=== PATIENT | male | born 1940 | race Two or more races ===

== ENCOUNTER 2018-01-22 14:19 | Inpatient (IN) | payer MEDICARE, OTHER ==
[~2018-01-22] VITALS: Ht 175.3 cm; Wt 68.1 kg
[2018-01-22] MEDS ORDERED: ACETAMINOPHEN 325 MG TABLET PO PRN (15:00)
[2018-01-22] MEDS ORDERED: POLYETHYLENE GLYCOL 17 GM PACKET PO PRN (15:00)
[2018-01-22] MEDS ORDERED: BISACODYL 10 MG SUPP PR PRN (15:00)
[2018-01-22] MEDS ORDERED: DOCUSATE 100 MG CAPSULE PO PRN (15:00)
[2018-01-22 16:51] LABS: MICROSCOPIC AUTO
[2018-01-22 17:00] VITALS: BP 131/84
[2018-01-22 17:05] LABS: CHOLESTEROL, TOTAL 148 mg/dL (140-239); TRIGLYCERIDES 344 mg/dL (50-200); VLDL CHOLESTEROL 69 mg/dL (0-25)
[2018-01-22] MEDS ORDERED: SPIR25TA5 PO (17:24)
[2018-01-22] MEDS ORDERED: CARV3.12 PO (17:24)
[2018-01-22] MEDS ORDERED: TICA90TA PO (17:24)
[2018-01-22] MEDS ORDERED: METF-649 PO (17:24)
[2018-01-22] MEDS ORDERED: LISI-424 PO (17:24)
[2018-01-22] MEDS ORDERED: SERT100T PO (17:24)
[2018-01-22] MEDS ORDERED: INSU100V13 SQ-INSULIN (17:24)
[2018-01-22] MEDS ORDERED: ATOR-2 PO (17:24)
[2018-01-22 17:31] LABS: CHOL/HDL RATIO 4.8; FREE T4 (FREE THYROXINE) 1.11 ng/dL (0.76-1.46); HDL CHOL % 21 % (26-37); HDL CHOLESTEROL (DIRECT) 31 mg/dL (40-60); LDL CHOLESTEROL,CALCULATED 48 mg/dL (54-169); LDL/HDL RATIO 1.5 (0.5-3.0); THYROID STIMULATING HORMONE 0.317 mIU/L (0.358-3.740)
[2018-01-22 17:35] LABS: FOLATE LEVEL > 20.0 ng/mL (3.1-17.5)
[2018-01-22] MEDS ORDERED: GLUCAGON 1 MG IM PRN (18:00)
[2018-01-22] MEDS ORDERED: DEXTROSE 4 GM TAB.CHEW PO PRN (18:00)
[2018-01-22] MEDS ORDERED: DEXTROSE 50%, 50ML SYRINGE IVPush PRN (18:00)
[2018-01-22] MEDS ORDERED: LORazepam 2 MG/ML, 1ML IM PRN (18:00)
[2018-01-22] MEDS ORDERED: QUETIAPINE 25MG TABLET PO PRN (18:00)
[2018-01-22 18:09] VITALS: BP 131/84
[2018-01-22 19:23] VITALS: BP 142/85
[2018-01-22] MEDS: SODIUM CHLORIDE FLUSH 10ML SYR IVF SCH (20:38)
[2018-01-22] MEDS ORDERED: INSULIN DETEMIR 45 UNIT SQ-INSULIN SCH (21:00)
[2018-01-22] MEDS: metFORMIN XR 500 MG TAB.ER.24H PO SCH (21:26)
[2018-01-22] MEDS: TICAGRELOR 90 MG TABLET PO SCH (21:26)
[2018-01-22] MEDS: QUETIAPINE 25MG TABLET PO SCH (21:26)
[2018-01-22] MEDS: VALPROIC ACID 250 MG CAPSULE PO SCH (21:26)
[2018-01-22] MEDS: ATORVASTATIN 80 MG TABLET PO SCH (21:26)
[2018-01-22] MEDS: CARVEDILOL 3.125 MG TABLET PO SCH (21:26)
[2018-01-22] MEDS: INSULIN LISPRO 100 UNITS/ML, PEN SQ-INSULIN SCH (21:27)
[2018-01-22] MEDS: INSULIN GLARGINE 100 UNITS/ML, PEN SQ-INSULIN SCH (21:28)
[2018-01-23 05:57] LABS: BASOPHILS # (AUTO) 0.04 x10^3/uL (0-0.1); BASOPHILS % (AUTO) 0 % (0-1); EOSINOPHILS # (AUTO) 0.28 x10^3/uL (0-0.4); EOSINOPHILS % (AUTO) 3 % (1-7); LYMPHOCYTES # (AUTO) 3.16 x10^3/uL (1-3.4); LYMPHOCYTES % (AUTO) 33 % (22-44); MD NO; MEAN CORPUSCULAR HEMOGLOBIN 30.4 pg (27.5-34.5); MEAN CORPUSCULAR HGB CONC 33.6 g/dL (33.2-36.2); MEAN CORPUSCULAR VOLUME 90.4 fL (81-97); MEAN PLATELET VOLUME 8.3 fL (7.4-10.4); MONOCYTES # (AUTO) 0.86 x10^3/uL (0.2-0.8); MONOCYTES % (AUTO) 9 % (2-9); NEUTROPHILS # (AUTO) 5.16 x10^3/uL (1.8-6.8); NEUTROPHILS % (AUTO) 54 % (42-75); PLATELET COUNT 212 x10^3/uL (130-400); RED BLOOD COUNT 5.46 x10^6/uL (4.38-5.82); RED CELL DISTRIBUTION WIDTH 13.6 % (9.4-14.8)
[2018-01-23 06:00] LABS: ALBUMIN 3.4 g/dL (3.4-5.0); ANION GAP 11 mmol/L (5-15); CALCIUM 9.4 mg/dL (8.5-10.1); CHLORIDE 103 mmol/L (98-107)
[2018-01-23 06:04] LABS: ALANINE AMINOTRANSFERASE 23 U/L (12-78); ALKALINE PHOSPHATASE 115 U/L (45-117); BILIRUBIN,TOTAL 1.2 mg/dL (0.2-1.0); CREATININE 0.96 mg/dL (0.7-1.3); TOTAL PROTEIN 7.1 g/dL (6.4-8.2)
[2018-01-23 07:39] VITALS: BP 123/79
[2018-01-23] MEDS: INSULIN LISPRO 100 UNITS/ML, PEN SQ-INSULIN SCH ×4 (07:48→20:11)
[2018-01-23] MEDS: VALPROIC ACID 250 MG CAPSULE PO SCH ×2 (08:30→20:09)
[2018-01-23] MEDS: TICAGRELOR 90 MG TABLET PO SCH ×2 (08:30→20:07)
[2018-01-23] MEDS: SPIRONOLACTONE 25 MG TABLET PO SCH (08:30)
[2018-01-23] MEDS: CARVEDILOL 3.125 MG TABLET PO SCH ×2 (08:30→20:08)
[2018-01-23] MEDS: SERTRALINE 100MG TABLET PO SCH (08:31)
[2018-01-23] MEDS: QUETIAPINE 25MG TABLET PO SCH ×2 (08:31→20:08)
[2018-01-23] MEDS: LISINOPRIL 5 MG TABLET PO SCH (08:31)
[2018-01-23] MEDS: SODIUM CHLORIDE FLUSH 10ML SYR IVF SCH (08:35)
[2018-01-23 19:24] VITALS: BP 127/78
[2018-01-23] MEDS: metFORMIN XR 500 MG TAB.ER.24H PO SCH (20:07)
[2018-01-23] MEDS: ATORVASTATIN 80 MG TABLET PO SCH (20:08)
[2018-01-23] MEDS: INSULIN GLARGINE 100 UNITS/ML, PEN SQ-INSULIN SCH (20:11)
[2018-01-24] MEDS: INSULIN LISPRO 100 UNITS/ML, PEN SQ-INSULIN SCH ×4 (07:42→20:46)
[2018-01-24 07:52] VITALS: BP 101/65
[2018-01-24] MEDS: LISINOPRIL 5 MG TABLET PO SCH (08:32)
[2018-01-24] MEDS: SERTRALINE 100MG TABLET PO SCH (08:32)
[2018-01-24] MEDS: CARVEDILOL 3.125 MG TABLET PO SCH ×2 (08:33→20:45)
[2018-01-24] MEDS: TICAGRELOR 90 MG TABLET PO SCH ×2 (08:33→20:44)
[2018-01-24] MEDS: QUETIAPINE 25MG TABLET PO SCH ×2 (08:33→20:45)
[2018-01-24] MEDS: VALPROIC ACID 250 MG CAPSULE PO SCH ×2 (08:33→20:45)
[2018-01-24] MEDS: SPIRONOLACTONE 25 MG TABLET PO SCH (08:33)
[2018-01-24 19:40] VITALS: BP 123/79
[2018-01-24] MEDS: ATORVASTATIN 80 MG TABLET PO SCH (20:44)
[2018-01-24] MEDS: metFORMIN XR 500 MG TAB.ER.24H PO SCH (20:44)
[2018-01-24] MEDS: INSULIN GLARGINE 100 UNITS/ML, PEN SQ-INSULIN SCH (20:45)
[2018-01-25 07:33] VITALS: BP 131/83
[2018-01-25] MEDS: INSULIN LISPRO 100 UNITS/ML, PEN SQ-INSULIN SCH ×4 (08:01→21:15)
[2018-01-25] MEDS: SPIRONOLACTONE 25 MG TABLET PO SCH (08:07)
[2018-01-25] MEDS: SERTRALINE 100MG TABLET PO SCH (08:07)
[2018-01-25] MEDS: QUETIAPINE 25MG TABLET PO SCH ×2 (08:07→21:14)
[2018-01-25] MEDS: TICAGRELOR 90 MG TABLET PO SCH ×2 (08:07→21:14)
[2018-01-25] MEDS: LISINOPRIL 5 MG TABLET PO SCH (08:07)
[2018-01-25] MEDS: VALPROIC ACID 250 MG CAPSULE PO SCH ×2 (08:07→21:14)
[2018-01-25] MEDS: CARVEDILOL 3.125 MG TABLET PO SCH ×2 (08:07→21:14)
[2018-01-25 19:50] VITALS: BP 121/74
[2018-01-25] MEDS: ATORVASTATIN 80 MG TABLET PO SCH (21:14)
[2018-01-25] MEDS: metFORMIN XR 500 MG TAB.ER.24H PO SCH (21:14)
[2018-01-25] MEDS: INSULIN GLARGINE 100 UNITS/ML, PEN SQ-INSULIN SCH (21:15)
[2018-01-26] MEDS: INSULIN LISPRO 100 UNITS/ML, PEN SQ-INSULIN SCH ×4 (07:00→21:17)
[2018-01-26 08:00] VITALS: BP 124/77
[2018-01-26] MEDS: CARVEDILOL 3.125 MG TABLET PO SCH ×2 (08:18→21:18)
[2018-01-26] MEDS: LISINOPRIL 5 MG TABLET PO SCH (08:18)
[2018-01-26] MEDS: QUETIAPINE 25MG TABLET PO SCH ×2 (08:19→21:17)
[2018-01-26] MEDS: SPIRONOLACTONE 25 MG TABLET PO SCH (08:19)
[2018-01-26] MEDS: SERTRALINE 100MG TABLET PO SCH (08:19)
[2018-01-26] MEDS: TICAGRELOR 90 MG TABLET PO SCH ×2 (08:19→21:17)
[2018-01-26] MEDS: VALPROIC ACID 250 MG CAPSULE PO SCH ×2 (08:19→21:17)
[2018-01-26 19:29] VITALS: BP 123/79
[2018-01-26] MEDS: INSULIN GLARGINE 100 UNITS/ML, PEN SQ-INSULIN SCH (21:17)
[2018-01-26] MEDS: ATORVASTATIN 80 MG TABLET PO SCH (21:17)
[2018-01-26] MEDS: metFORMIN XR 500 MG TAB.ER.24H PO SCH (21:18)
[2018-01-27] MEDS: INSULIN LISPRO 100 UNITS/ML, PEN SQ-INSULIN SCH ×4 (07:00→20:26)
[2018-01-27 07:41] VITALS: BP 108/72
[2018-01-27] MEDS: TICAGRELOR 90 MG TABLET PO SCH ×2 (08:46→20:25)
[2018-01-27] MEDS: SPIRONOLACTONE 25 MG TABLET PO SCH (08:46)
[2018-01-27] MEDS: CARVEDILOL 3.125 MG TABLET PO SCH ×2 (08:47→20:25)
[2018-01-27] MEDS: LISINOPRIL 5 MG TABLET PO SCH (08:47)
[2018-01-27] MEDS: VALPROIC ACID 250 MG CAPSULE PO SCH ×2 (08:47→20:25)
[2018-01-27] MEDS: SERTRALINE 100MG TABLET PO SCH (08:47)
[2018-01-27] MEDS: QUETIAPINE 25MG TABLET PO SCH ×2 (08:47→20:25)
[2018-01-27 20:03] VITALS: BP 118/80
[2018-01-27] MEDS: ATORVASTATIN 80 MG TABLET PO SCH (20:25)
[2018-01-27] MEDS: metFORMIN XR 500 MG TAB.ER.24H PO SCH (20:25)
[2018-01-27] MEDS: INSULIN GLARGINE 100 UNITS/ML, PEN SQ-INSULIN SCH (20:26)
[2018-01-28] MEDS: INSULIN LISPRO 100 UNITS/ML, PEN SQ-INSULIN SCH ×4 (07:00→21:30)
[2018-01-28 08:05] VITALS: BP 130/81
[2018-01-28] MEDS: SPIRONOLACTONE 25 MG TABLET PO SCH (08:52)
[2018-01-28] MEDS: CARVEDILOL 3.125 MG TABLET PO SCH ×2 (08:52→20:50)
[2018-01-28] MEDS: TICAGRELOR 90 MG TABLET PO SCH ×2 (08:52→20:50)
[2018-01-28] MEDS: SERTRALINE 100MG TABLET PO SCH (08:53)
[2018-01-28] MEDS: LISINOPRIL 5 MG TABLET PO SCH (08:53)
[2018-01-28] MEDS: QUETIAPINE 25MG TABLET PO SCH ×2 (08:53→20:50)
[2018-01-28] MEDS: VALPROIC ACID 250 MG CAPSULE PO SCH ×2 (08:54→20:51)
[2018-01-28 19:31] VITALS: BP 111/69
[2018-01-28] MEDS: metFORMIN XR 500 MG TAB.ER.24H PO SCH (20:50)
[2018-01-28] MEDS: ATORVASTATIN 80 MG TABLET PO SCH (20:50)
[2018-01-28] MEDS: INSULIN GLARGINE 100 UNITS/ML, PEN SQ-INSULIN SCH (21:30)
[2018-01-29 07:30] VITALS: BP 127/79
[2018-01-29] MEDS: INSULIN LISPRO 100 UNITS/ML, PEN SQ-INSULIN SCH ×4 (07:35→20:07)
[2018-01-29] MEDS: VALPROIC ACID 250 MG CAPSULE PO SCH ×2 (08:19→20:05)
[2018-01-29] MEDS: QUETIAPINE 25MG TABLET PO SCH ×2 (08:19→20:05)
[2018-01-29] MEDS: CARVEDILOL 3.125 MG TABLET PO SCH ×2 (08:19→20:06)
[2018-01-29] MEDS: TICAGRELOR 90 MG TABLET PO SCH ×2 (08:19→20:05)
[2018-01-29] MEDS: SERTRALINE 100MG TABLET PO SCH (08:19)
[2018-01-29] MEDS: SPIRONOLACTONE 25 MG TABLET PO SCH (08:19)
[2018-01-29] MEDS: LISINOPRIL 5 MG TABLET PO SCH (08:20)
[2018-01-29 19:31] VITALS: BP 119/78
[2018-01-29] MEDS: ATORVASTATIN 80 MG TABLET PO SCH (20:05)
[2018-01-29] MEDS: metFORMIN XR 500 MG TAB.ER.24H PO SCH (20:06)
[2018-01-29] MEDS: INSULIN GLARGINE 100 UNITS/ML, PEN SQ-INSULIN SCH (20:07)
[2018-01-30] MEDS: INSULIN LISPRO 100 UNITS/ML, PEN SQ-INSULIN SCH ×4 (07:42→20:20)
[2018-01-30 08:05] VITALS: BP 125/81
[2018-01-30] MEDS: SPIRONOLACTONE 25 MG TABLET PO SCH (08:50)
[2018-01-30] MEDS: TICAGRELOR 90 MG TABLET PO SCH ×2 (08:50→20:19)
[2018-01-30] MEDS: VALPROIC ACID 250 MG CAPSULE PO SCH ×2 (08:50→20:18)
[2018-01-30] MEDS: CARVEDILOL 3.125 MG TABLET PO SCH ×2 (08:50→20:19)
[2018-01-30] MEDS: SERTRALINE 100MG TABLET PO SCH (08:51)
[2018-01-30] MEDS: LISINOPRIL 5 MG TABLET PO SCH (08:51)
[2018-01-30] MEDS: QUETIAPINE 25MG TABLET PO SCH ×2 (08:51→20:18)
[2018-01-30 19:25] VITALS: BP 125/80
[2018-01-30] MEDS: metFORMIN XR 500 MG TAB.ER.24H PO SCH (20:18)
[2018-01-30] MEDS: ATORVASTATIN 80 MG TABLET PO SCH (20:19)
[2018-01-30] MEDS: INSULIN GLARGINE 100 UNITS/ML, PEN SQ-INSULIN SCH (20:20)
[2018-01-31] MEDS: INSULIN LISPRO 100 UNITS/ML, PEN SQ-INSULIN SCH ×4 (07:47→20:19)
[2018-01-31 07:50] VITALS: BP 105/72
[2018-01-31] MEDS: VALPROIC ACID 250 MG CAPSULE PO SCH ×2 (08:20→20:18)
[2018-01-31] MEDS: LISINOPRIL 5 MG TABLET PO SCH (08:20)
[2018-01-31] MEDS: SERTRALINE 100MG TABLET PO SCH (08:20)
[2018-01-31] MEDS: CARVEDILOL 3.125 MG TABLET PO SCH ×2 (08:20→20:19)
[2018-01-31] MEDS: TICAGRELOR 90 MG TABLET PO SCH ×2 (08:21→20:18)
[2018-01-31] MEDS: QUETIAPINE 25MG TABLET PO SCH ×2 (08:21→20:18)
[2018-01-31] MEDS: SPIRONOLACTONE 25 MG TABLET PO SCH (08:21)
[2018-01-31 19:24] VITALS: BP 123/78
[2018-01-31] MEDS: metFORMIN XR 500 MG TAB.ER.24H PO SCH (20:18)
[2018-01-31] MEDS: ATORVASTATIN 80 MG TABLET PO SCH (20:18)
[2018-01-31] MEDS: INSULIN GLARGINE 100 UNITS/ML, PEN SQ-INSULIN SCH (20:19)
[2018-02-01] MEDS: INSULIN LISPRO 100 UNITS/ML, PEN SQ-INSULIN SCH ×4 (07:28→20:54)
[2018-02-01 07:31] VITALS: BP 120/78
[2018-02-01] MEDS: LISINOPRIL 5 MG TABLET PO SCH (08:40)
[2018-02-01] MEDS: VALPROIC ACID 250 MG CAPSULE PO SCH ×2 (08:40→20:52)
[2018-02-01] MEDS: SERTRALINE 100MG TABLET PO SCH (08:40)
[2018-02-01] MEDS: SPIRONOLACTONE 25 MG TABLET PO SCH (08:41)
[2018-02-01] MEDS: TICAGRELOR 90 MG TABLET PO SCH ×2 (08:41→20:52)
[2018-02-01] MEDS: CARVEDILOL 3.125 MG TABLET PO SCH ×2 (08:42→20:53)
[2018-02-01] MEDS: QUETIAPINE 25MG TABLET PO SCH ×2 (08:50→20:52)
[2018-02-01 20:00] VITALS: BP 98/66
[2018-02-01] MEDS: ATORVASTATIN 80 MG TABLET PO SCH (20:53)
[2018-02-01] MEDS: metFORMIN XR 500 MG TAB.ER.24H PO SCH (20:53)
[2018-02-01] MEDS: INSULIN GLARGINE 100 UNITS/ML, PEN SQ-INSULIN SCH (20:54)
[2018-02-02] MEDS: INSULIN LISPRO 100 UNITS/ML, PEN SQ-INSULIN SCH ×4 (08:00→21:00)
[2018-02-02 08:22] VITALS: BP 116/78
[2018-02-02] MEDS: LISINOPRIL 5 MG TABLET PO SCH (08:58)
[2018-02-02] MEDS: TICAGRELOR 90 MG TABLET PO SCH ×2 (08:59→21:14)
[2018-02-02] MEDS: SPIRONOLACTONE 25 MG TABLET PO SCH (08:59)
[2018-02-02] MEDS: SERTRALINE 100MG TABLET PO SCH (08:59)
[2018-02-02] MEDS: VALPROIC ACID 250 MG CAPSULE PO SCH ×2 (08:59→21:13)
[2018-02-02] MEDS: QUETIAPINE 25MG TABLET PO SCH ×2 (08:59→21:13)
[2018-02-02] MEDS: CARVEDILOL 3.125 MG TABLET PO SCH ×2 (09:00→21:14)
[2018-02-02 19:48] VITALS: BP 119/67
[2018-02-02] MEDS: ATORVASTATIN 80 MG TABLET PO SCH (21:13)
[2018-02-02] MEDS: metFORMIN XR 500 MG TAB.ER.24H PO SCH (21:13)
[2018-02-02] MEDS: INSULIN GLARGINE 100 UNITS/ML, PEN SQ-INSULIN SCH (21:16)
[2018-02-03] MEDS: INSULIN LISPRO 100 UNITS/ML, PEN SQ-INSULIN SCH ×4 (07:46→20:54)
[2018-02-03 07:47] VITALS: BP 113/76
[2018-02-03] MEDS: LISINOPRIL 5 MG TABLET PO SCH (10:13)
[2018-02-03] MEDS: SERTRALINE 100MG TABLET PO SCH (10:13)
[2018-02-03] MEDS: CARVEDILOL 3.125 MG TABLET PO SCH ×2 (10:13→20:52)
[2018-02-03] MEDS: QUETIAPINE 25MG TABLET PO SCH ×2 (10:14→20:53)
[2018-02-03] MEDS: VALPROIC ACID 250 MG CAPSULE PO SCH ×2 (10:14→20:53)
[2018-02-03] MEDS: TICAGRELOR 90 MG TABLET PO SCH ×2 (10:14→20:51)
[2018-02-03] MEDS: SPIRONOLACTONE 25 MG TABLET PO SCH (10:14)
[2018-02-03 19:40] VITALS: BP 115/81
[2018-02-03] MEDS: metFORMIN XR 500 MG TAB.ER.24H PO SCH (20:53)
[2018-02-03] MEDS: ATORVASTATIN 80 MG TABLET PO SCH (20:53)
[2018-02-03] MEDS: INSULIN GLARGINE 100 UNITS/ML, PEN SQ-INSULIN SCH (20:56)
[2018-02-04] MEDS: INSULIN LISPRO 100 UNITS/ML, PEN SQ-INSULIN SCH ×4 (07:33→20:55)
[2018-02-04 07:38] VITALS: BP 111/73
[2018-02-04] MEDS: LISINOPRIL 5 MG TABLET PO SCH (08:22)
[2018-02-04] MEDS: VALPROIC ACID 250 MG CAPSULE PO SCH ×2 (08:22→21:00)
[2018-02-04] MEDS: CARVEDILOL 3.125 MG TABLET PO SCH ×2 (08:22→20:59)
[2018-02-04] MEDS: SERTRALINE 100MG TABLET PO SCH (08:23)
[2018-02-04] MEDS: QUETIAPINE 25MG TABLET PO SCH ×2 (08:23→21:01)
[2018-02-04] MEDS: SPIRONOLACTONE 25 MG TABLET PO SCH (08:23)
[2018-02-04] MEDS: TICAGRELOR 90 MG TABLET PO SCH ×2 (08:23→20:58)
[2018-02-04 19:55] VITALS: BP 119/75
[2018-02-04] MEDS: metFORMIN XR 500 MG TAB.ER.24H PO SCH (20:59)
[2018-02-04] MEDS: INSULIN GLARGINE 100 UNITS/ML, PEN SQ-INSULIN SCH (21:00)
[2018-02-04] MEDS: ATORVASTATIN 80 MG TABLET PO SCH (21:00)
[2018-02-05 07:37] VITALS: BP 122/77
[2018-02-05] MEDS: INSULIN LISPRO 100 UNITS/ML, PEN SQ-INSULIN SCH ×4 (08:05→20:08)
[2018-02-05] MEDS: VALPROIC ACID 250 MG CAPSULE PO SCH ×2 (08:26→20:07)
[2018-02-05] MEDS: LISINOPRIL 5 MG TABLET PO SCH (08:27)
[2018-02-05] MEDS: QUETIAPINE 25MG TABLET PO SCH ×2 (08:27→20:08)
[2018-02-05] MEDS: CARVEDILOL 3.125 MG TABLET PO SCH ×2 (08:27→20:07)
[2018-02-05] MEDS: SERTRALINE 100MG TABLET PO SCH (08:27)
[2018-02-05] MEDS: SPIRONOLACTONE 25 MG TABLET PO SCH (08:28)
[2018-02-05] MEDS: TICAGRELOR 90 MG TABLET PO SCH ×2 (08:31→20:07)
[2018-02-05 19:39] VITALS: BP 113/71
[2018-02-05 19:40] VITALS: BP 113/71
[2018-02-05] MEDS: ATORVASTATIN 80 MG TABLET PO SCH (20:07)
[2018-02-05] MEDS: metFORMIN XR 500 MG TAB.ER.24H PO SCH (20:07)
[2018-02-05] MEDS: INSULIN GLARGINE 100 UNITS/ML, PEN SQ-INSULIN SCH (20:09)
[2018-02-06 07:17] VITALS: BP 127/82
[2018-02-06] MEDS: INSULIN LISPRO 100 UNITS/ML, PEN SQ-INSULIN SCH ×4 (07:54→20:58)
[2018-02-06] MEDS: SERTRALINE 100MG TABLET PO SCH (09:22)
[2018-02-06] MEDS: VALPROIC ACID 250 MG CAPSULE PO SCH ×2 (09:22→20:56)
[2018-02-06] MEDS: TICAGRELOR 90 MG TABLET PO SCH ×2 (09:22→20:52)
[2018-02-06] MEDS: SPIRONOLACTONE 25 MG TABLET PO SCH (09:22)
[2018-02-06] MEDS: LISINOPRIL 5 MG TABLET PO SCH (09:22)
[2018-02-06] MEDS: CARVEDILOL 3.125 MG TABLET PO SCH ×2 (09:22→20:55)
[2018-02-06] MEDS: QUETIAPINE 25MG TABLET PO SCH ×2 (09:22→20:53)
[2018-02-06 19:29] VITALS: BP 120/76
[2018-02-06] MEDS: metFORMIN XR 500 MG TAB.ER.24H PO SCH (20:52)
[2018-02-06] MEDS: ATORVASTATIN 80 MG TABLET PO SCH (20:53)
[2018-02-06] MEDS: INSULIN GLARGINE 100 UNITS/ML, PEN SQ-INSULIN SCH (20:59)
[2018-02-07] MEDS: INSULIN LISPRO 100 UNITS/ML, PEN SQ-INSULIN SCH ×4 (07:28→20:30)
[2018-02-07 07:45] VITALS: BP 124/80
[2018-02-07] MEDS: VALPROIC ACID 250 MG CAPSULE PO SCH ×2 (08:58→20:10)
[2018-02-07] MEDS: LISINOPRIL 5 MG TABLET PO SCH (08:59)
[2018-02-07] MEDS: QUETIAPINE 25MG TABLET PO SCH ×2 (08:59→20:10)
[2018-02-07] MEDS: SPIRONOLACTONE 25 MG TABLET PO SCH (08:59)
[2018-02-07] MEDS: SERTRALINE 100MG TABLET PO SCH (08:59)
[2018-02-07] MEDS: TICAGRELOR 90 MG TABLET PO SCH ×2 (08:59→20:10)
[2018-02-07] MEDS: CARVEDILOL 3.125 MG TABLET PO SCH ×2 (09:00→20:09)
[2018-02-07 19:40] VITALS: BP 123/71
[2018-02-07] MEDS: ATORVASTATIN 80 MG TABLET PO SCH (20:09)
[2018-02-07] MEDS: metFORMIN XR 500 MG TAB.ER.24H PO SCH (20:11)
[2018-02-07] MEDS: INSULIN GLARGINE 100 UNITS/ML, PEN SQ-INSULIN SCH (20:30)
[2018-02-08] MEDS: INSULIN LISPRO 100 UNITS/ML, PEN SQ-INSULIN SCH ×4 (07:52→21:10)
[2018-02-08 08:36] VITALS: BP 116/77
[2018-02-08] MEDS: QUETIAPINE 25MG TABLET PO SCH ×2 (09:44→20:32)
[2018-02-08] MEDS: VALPROIC ACID 250 MG CAPSULE PO SCH ×2 (09:44→20:33)
[2018-02-08] MEDS: CARVEDILOL 3.125 MG TABLET PO SCH ×2 (09:46→20:31)
[2018-02-08] MEDS: SPIRONOLACTONE 25 MG TABLET PO SCH (09:46)
[2018-02-08] MEDS: TICAGRELOR 90 MG TABLET PO SCH ×2 (09:46→20:30)
[2018-02-08] MEDS: LISINOPRIL 5 MG TABLET PO SCH (09:46)
[2018-02-08] MEDS: SERTRALINE 100MG TABLET PO SCH (09:46)
[2018-02-08 19:22] VITALS: BP 109/68
[2018-02-08] MEDS: ATORVASTATIN 80 MG TABLET PO SCH (20:31)
[2018-02-08] MEDS: metFORMIN XR 500 MG TAB.ER.24H PO SCH (20:32)
[2018-02-08] MEDS: INSULIN GLARGINE 100 UNITS/ML, PEN SQ-INSULIN SCH (21:09)
[2018-02-09] MEDS: INSULIN LISPRO 100 UNITS/ML, PEN SQ-INSULIN SCH ×4 (07:54→21:11)
[2018-02-09] MEDS: VALPROIC ACID 250 MG CAPSULE PO SCH ×2 (08:30→21:03)
[2018-02-09] MEDS: LISINOPRIL 5 MG TABLET PO SCH (08:30)
[2018-02-09] MEDS: CARVEDILOL 3.125 MG TABLET PO SCH ×2 (08:31→21:03)
[2018-02-09] MEDS: TICAGRELOR 90 MG TABLET PO SCH ×2 (08:31→21:03)
[2018-02-09] MEDS: QUETIAPINE 25MG TABLET PO SCH ×2 (08:31→21:04)
[2018-02-09] MEDS: SPIRONOLACTONE 25 MG TABLET PO SCH (08:31)
[2018-02-09] MEDS: SERTRALINE 100MG TABLET PO SCH (08:31)
[2018-02-09 08:32] VITALS: BP 109/68
[2018-02-09 19:26] VITALS: BP 127/77
[2018-02-09] MEDS: metFORMIN XR 500 MG TAB.ER.24H PO SCH (21:04)
[2018-02-09] MEDS: ATORVASTATIN 80 MG TABLET PO SCH (21:04)
[2018-02-09] MEDS: INSULIN GLARGINE 100 UNITS/ML, PEN SQ-INSULIN SCH (21:12)
[2018-02-10] MEDS: INSULIN LISPRO 100 UNITS/ML, PEN SQ-INSULIN SCH ×4 (07:00→21:28)
[2018-02-10 07:41] VITALS: BP 137/83
[2018-02-10] MEDS: SPIRONOLACTONE 25 MG TABLET PO SCH (09:22)
[2018-02-10] MEDS: SERTRALINE 100MG TABLET PO SCH (09:22)
[2018-02-10] MEDS: VALPROIC ACID 250 MG CAPSULE PO SCH ×2 (09:22→21:24)
[2018-02-10] MEDS: QUETIAPINE 25MG TABLET PO SCH ×2 (09:22→21:25)
[2018-02-10] MEDS: CARVEDILOL 3.125 MG TABLET PO SCH ×2 (09:23→21:24)
[2018-02-10] MEDS: LISINOPRIL 5 MG TABLET PO SCH (09:23)
[2018-02-10] MEDS: TICAGRELOR 90 MG TABLET PO SCH ×2 (09:23→21:24)
[2018-02-10 19:37] VITALS: BP 133/81
[2018-02-10] MEDS: metFORMIN XR 500 MG TAB.ER.24H PO SCH (21:24)
[2018-02-10] MEDS: ATORVASTATIN 80 MG TABLET PO SCH (21:25)
[2018-02-10] MEDS: INSULIN GLARGINE 100 UNITS/ML, PEN SQ-INSULIN SCH (21:29)
[2018-02-11] MEDS: INSULIN LISPRO 100 UNITS/ML, PEN SQ-INSULIN SCH ×4 (07:45→21:00)
[2018-02-11 07:48] VITALS: BP 112/66
[2018-02-11] MEDS: VALPROIC ACID 250 MG CAPSULE PO SCH ×2 (08:58→20:56)
[2018-02-11] MEDS: QUETIAPINE 25MG TABLET PO SCH ×2 (08:58→20:55)
[2018-02-11] MEDS: SERTRALINE 100MG TABLET PO SCH (08:58)
[2018-02-11] MEDS: LISINOPRIL 5 MG TABLET PO SCH (08:58)
[2018-02-11] MEDS: TICAGRELOR 90 MG TABLET PO SCH ×2 (08:58→20:55)
[2018-02-11] MEDS: SPIRONOLACTONE 25 MG TABLET PO SCH (08:58)
[2018-02-11] MEDS: CARVEDILOL 3.125 MG TABLET PO SCH ×2 (10:55→20:55)
[2018-02-11 16:55] LABS: BASOPHILS # (AUTO) 0.03 x10^3/uL (0-0.1); BASOPHILS % (AUTO) 0 % (0-1); EOSINOPHILS # (AUTO) 0.31 x10^3/uL (0-0.4); EOSINOPHILS % (AUTO) 3 % (1-7); LYMPHOCYTES # (AUTO) 3.52 x10^3/uL (1-3.4); LYMPHOCYTES % (AUTO) 28 % (22-44); MD NO; MEAN CORPUSCULAR HEMOGLOBIN 30.3 pg (27.5-34.5); MEAN CORPUSCULAR HGB CONC 33.8 g/dL (33.2-36.2); MEAN CORPUSCULAR VOLUME 89.7 fL (81-97); MEAN PLATELET VOLUME 8.7 fL (7.4-10.4); MONOCYTES # (AUTO) 1.07 x10^3/uL (0.2-0.8); MONOCYTES % (AUTO) 9 % (2-9); NEUTROPHILS # (AUTO) 7.49 x10^3/uL (1.8-6.8); NEUTROPHILS % (AUTO) 60 % (42-75); PLATELET COUNT 244 x10^3/uL (130-400); RED BLOOD COUNT 5.61 x10^6/uL (4.38-5.82); RED CELL DISTRIBUTION WIDTH 13.7 % (9.4-14.8)
[2018-02-11 17:00] LABS: ALANINE AMINOTRANSFERASE 34 U/L (12-78); ALBUMIN 3.4 g/dL (3.4-5.0); ANION GAP 7 mmol/L (5-15); CALCIUM 8.8 mg/dL (8.5-10.1); CHLORIDE 101 mmol/L (98-107); CREATININE 0.97 mg/dL (0.7-1.3)
[2018-02-11 17:03] LABS: ALKALINE PHOSPHATASE 100 U/L (45-117); BILIRUBIN,TOTAL 0.4 mg/dL (0.2-1.0); TOTAL PROTEIN 7.2 g/dL (6.4-8.2)
[2018-02-11 17:22] LABS: HEMOGLOBIN A1C 11.8 % (4.2-6.3)
[2018-02-11 19:32] VITALS: BP 116/72
[2018-02-11] MEDS: ATORVASTATIN 80 MG TABLET PO SCH (20:55)
[2018-02-11] MEDS: metFORMIN XR 500 MG TAB.ER.24H PO SCH (20:57)
[2018-02-11] MEDS: INSULIN GLARGINE 100 UNITS/ML, PEN SQ-INSULIN SCH (21:45)
[2018-02-12 07:52] VITALS: BP 112/70
[2018-02-12] MEDS: INSULIN LISPRO 100 UNITS/ML, PEN SQ-INSULIN SCH ×4 (07:57→20:41)
[2018-02-12] MEDS: VALPROIC ACID 250 MG CAPSULE PO SCH ×2 (08:25→20:31)
[2018-02-12] MEDS: CARVEDILOL 3.125 MG TABLET PO SCH ×2 (08:26→21:00)
[2018-02-12] MEDS: LISINOPRIL 5 MG TABLET PO SCH (08:26)
[2018-02-12] MEDS: TICAGRELOR 90 MG TABLET PO SCH ×2 (08:26→20:32)
[2018-02-12] MEDS: SERTRALINE 100MG TABLET PO SCH (08:26)
[2018-02-12] MEDS: SPIRONOLACTONE 25 MG TABLET PO SCH (08:26)
[2018-02-12] MEDS: QUETIAPINE 25MG TABLET PO SCH ×2 (08:28→20:32)
[2018-02-12 19:23] VITALS: BP 124/76
[2018-02-12] MEDS: metFORMIN XR 500 MG TAB.ER.24H PO SCH (20:31)
[2018-02-12] MEDS: ATORVASTATIN 80 MG TABLET PO SCH (20:32)
[2018-02-12] MEDS: INSULIN GLARGINE 100 UNITS/ML, PEN SQ-INSULIN SCH (20:42)
[2018-02-13] MEDS: INSULIN LISPRO 100 UNITS/ML, PEN SQ-INSULIN SCH ×4 (07:30→19:57)
[2018-02-13 07:45] VITALS: BP 124/64
[2018-02-13] MEDS: LISINOPRIL 5 MG TABLET PO SCH (08:47)
[2018-02-13] MEDS: TICAGRELOR 90 MG TABLET PO SCH ×2 (08:48→19:56)
[2018-02-13] MEDS: INSULIN GLARGINE 100 UNITS/ML, PEN SQ-INSULIN SCH ×2 (08:48→19:58)
[2018-02-13] MEDS: SPIRONOLACTONE 25 MG TABLET PO SCH (08:49)
[2018-02-13] MEDS: VALPROIC ACID 250 MG CAPSULE PO SCH ×2 (08:49→19:56)
[2018-02-13] MEDS: SERTRALINE 100MG TABLET PO SCH (08:49)
[2018-02-13] MEDS: QUETIAPINE 25MG TABLET PO SCH ×2 (08:49→19:57)
[2018-02-13] MEDS: CARVEDILOL 3.125 MG TABLET PO SCH ×2 (08:49→19:56)
[2018-02-13 19:48] VITALS: BP 118/71
[2018-02-13] MEDS: metFORMIN XR 500 MG TAB.ER.24H PO SCH (19:56)
[2018-02-13] MEDS: ATORVASTATIN 80 MG TABLET PO SCH (19:56)
[2018-02-14] MEDS: INSULIN LISPRO 100 UNITS/ML, PEN SQ-INSULIN SCH ×4 (07:40→20:14)
[2018-02-14] MEDS: TICAGRELOR 90 MG TABLET PO SCH ×2 (08:39→20:12)
[2018-02-14] MEDS: SPIRONOLACTONE 25 MG TABLET PO SCH (08:39)
[2018-02-14] MEDS: VALPROIC ACID 250 MG CAPSULE PO SCH ×2 (08:40→20:12)
[2018-02-14] MEDS: CARVEDILOL 3.125 MG TABLET PO SCH ×2 (08:40→20:12)
[2018-02-14] MEDS: LISINOPRIL 5 MG TABLET PO SCH (08:40)
[2018-02-14] MEDS: SERTRALINE 100MG TABLET PO SCH (08:41)
[2018-02-14] MEDS: QUETIAPINE 25MG TABLET PO SCH ×2 (08:41→20:13)
[2018-02-14] MEDS: INSULIN GLARGINE 100 UNITS/ML, PEN SQ-INSULIN SCH ×2 (08:42→20:14)
[2018-02-14 08:54] VITALS: BP 143/80
[2018-02-14 19:19] VITALS: BP 117/74
[2018-02-14] MEDS: metFORMIN XR 500 MG TAB.ER.24H PO SCH (20:12)
[2018-02-14] MEDS: ATORVASTATIN 80 MG TABLET PO SCH (20:15)
[2018-02-15] MEDS: INSULIN LISPRO 100 UNITS/ML, PEN SQ-INSULIN SCH ×4 (07:35→20:23)
[2018-02-15 08:00] VITALS: BP 106/65
[2018-02-15] MEDS: TICAGRELOR 90 MG TABLET PO SCH ×2 (08:52→20:22)
[2018-02-15] MEDS: INSULIN GLARGINE 100 UNITS/ML, PEN SQ-INSULIN SCH ×2 (08:52→20:23)
[2018-02-15] MEDS: SPIRONOLACTONE 25 MG TABLET PO SCH (08:52)
[2018-02-15] MEDS: CARVEDILOL 3.125 MG TABLET PO SCH ×2 (08:53→20:22)
[2018-02-15] MEDS: VALPROIC ACID 250 MG CAPSULE PO SCH ×2 (08:53→20:21)
[2018-02-15] MEDS: SERTRALINE 100MG TABLET PO SCH (08:54)
[2018-02-15] MEDS: QUETIAPINE 25MG TABLET PO SCH ×2 (08:54→20:22)
[2018-02-15] MEDS: LISINOPRIL 5 MG TABLET PO SCH (08:57)
[2018-02-15 19:41] VITALS: BP 130/78
[2018-02-15] MEDS: ATORVASTATIN 80 MG TABLET PO SCH (20:21)
[2018-02-15] MEDS: metFORMIN XR 500 MG TAB.ER.24H PO SCH (20:22)
[2018-02-16 07:52] VITALS: BP 101/64
[2018-02-16] MEDS: INSULIN LISPRO 100 UNITS/ML, PEN SQ-INSULIN SCH ×4 (08:20→21:43)
[2018-02-16] MEDS: TICAGRELOR 90 MG TABLET PO SCH ×2 (08:21→21:43)
[2018-02-16] MEDS: VALPROIC ACID 250 MG CAPSULE PO SCH ×2 (08:21→21:43)
[2018-02-16] MEDS: SERTRALINE 100MG TABLET PO SCH (08:21)
[2018-02-16] MEDS: QUETIAPINE 25MG TABLET PO SCH ×2 (08:22→21:43)
[2018-02-16] MEDS: SPIRONOLACTONE 25 MG TABLET PO SCH (08:22)
[2018-02-16] MEDS: CARVEDILOL 3.125 MG TABLET PO SCH ×2 (08:22→21:43)
[2018-02-16] MEDS: LISINOPRIL 5 MG TABLET PO SCH (08:22)
[2018-02-16] MEDS: INSULIN GLARGINE 100 UNITS/ML, PEN SQ-INSULIN SCH ×2 (08:25→22:09)
[2018-02-16 19:26] VITALS: BP 137/76
[2018-02-16] MEDS: metFORMIN XR 500 MG TAB.ER.24H PO SCH (21:43)
[2018-02-16] MEDS: ATORVASTATIN 80 MG TABLET PO SCH (21:43)
[2018-02-17] MEDS: INSULIN LISPRO 100 UNITS/ML, PEN SQ-INSULIN SCH ×4 (07:38→21:00)
[2018-02-17 07:41] VITALS: BP 112/72
[2018-02-17] MEDS: VALPROIC ACID 250 MG CAPSULE PO SCH ×2 (09:32→21:26)
[2018-02-17] MEDS: QUETIAPINE 25MG TABLET PO SCH ×2 (09:32→21:00)
[2018-02-17] MEDS: LISINOPRIL 5 MG TABLET PO SCH (09:32)
[2018-02-17] MEDS: SPIRONOLACTONE 25 MG TABLET PO SCH (09:32)
[2018-02-17] MEDS: SERTRALINE 100MG TABLET PO SCH (09:32)
[2018-02-17] MEDS: TICAGRELOR 90 MG TABLET PO SCH ×2 (09:32→21:24)
[2018-02-17] MEDS: CARVEDILOL 3.125 MG TABLET PO SCH ×2 (09:32→21:25)
[2018-02-17] MEDS: INSULIN GLARGINE 100 UNITS/ML, PEN SQ-INSULIN SCH ×2 (09:41→21:00)
[2018-02-17 19:47] VITALS: BP 124/72
[2018-02-17] MEDS: ATORVASTATIN 80 MG TABLET PO SCH (21:25)
[2018-02-17] MEDS: metFORMIN XR 500 MG TAB.ER.24H PO SCH (21:26)
[2018-02-18] MEDS: INSULIN LISPRO 100 UNITS/ML, PEN SQ-INSULIN SCH ×4 (07:00→20:43)
[2018-02-18 07:37] VITALS: BP 105/69
[2018-02-18] MEDS: SERTRALINE 100MG TABLET PO SCH (09:26)
[2018-02-18] MEDS: VALPROIC ACID 250 MG CAPSULE PO SCH ×2 (09:26→20:42)
[2018-02-18] MEDS: SPIRONOLACTONE 25 MG TABLET PO SCH (09:26)
[2018-02-18] MEDS: CARVEDILOL 3.125 MG TABLET PO SCH ×2 (09:27→20:42)
[2018-02-18] MEDS: LISINOPRIL 5 MG TABLET PO SCH (09:27)
[2018-02-18] MEDS: TICAGRELOR 90 MG TABLET PO SCH ×2 (09:27→20:42)
[2018-02-18] MEDS: QUETIAPINE 25MG TABLET PO SCH ×2 (09:27→20:43)
[2018-02-18] MEDS: INSULIN GLARGINE 100 UNITS/ML, PEN SQ-INSULIN SCH ×2 (09:28→20:43)
[2018-02-18] MEDS ORDERED: LORazepam 0.5MG TABLET PO PRN (10:30)
[2018-02-18 19:24] VITALS: BP 129/74
[2018-02-18] MEDS: ATORVASTATIN 80 MG TABLET PO SCH (20:42)
[2018-02-18] MEDS: metFORMIN XR 500 MG TAB.ER.24H PO SCH (20:42)
[2018-02-19] MEDS: INSULIN LISPRO 100 UNITS/ML, PEN SQ-INSULIN SCH ×4 (07:00→20:34)
[2018-02-19 07:34] VITALS: BP 157/85
[2018-02-19] MEDS: VALPROIC ACID 250 MG CAPSULE PO SCH ×2 (08:02→20:27)
[2018-02-19] MEDS: SERTRALINE 100MG TABLET PO SCH (08:03)
[2018-02-19] MEDS: LISINOPRIL 5 MG TABLET PO SCH (08:03)
[2018-02-19] MEDS: CARVEDILOL 3.125 MG TABLET PO SCH ×2 (08:03→20:27)
[2018-02-19] MEDS: QUETIAPINE 25MG TABLET PO SCH ×2 (08:03→20:27)
[2018-02-19] MEDS: SPIRONOLACTONE 25 MG TABLET PO SCH (08:03)
[2018-02-19] MEDS: TICAGRELOR 90 MG TABLET PO SCH ×2 (08:03→20:27)
[2018-02-19] MEDS: INSULIN GLARGINE 100 UNITS/ML, PEN SQ-INSULIN SCH ×2 (08:05→20:39)
[2018-02-19 19:44] VITALS: BP 112/67
[2018-02-19] MEDS: metFORMIN XR 500 MG TAB.ER.24H PO SCH (20:26)
[2018-02-19] MEDS: ATORVASTATIN 80 MG TABLET PO SCH (20:26)
[2018-02-20] MEDS: INSULIN LISPRO 100 UNITS/ML, PEN SQ-INSULIN SCH (07:00)
[2018-02-20 08:00] VITALS: BP 120/80
[2018-02-20] MEDS: SPIRONOLACTONE 25 MG TABLET PO SCH (09:30)
[2018-02-20] MEDS: LISINOPRIL 5 MG TABLET PO SCH (09:31)
[2018-02-20] MEDS: SERTRALINE 100MG TABLET PO SCH (09:31)
[2018-02-20] MEDS: VALPROIC ACID 250 MG CAPSULE PO SCH ×2 (09:31→20:39)
[2018-02-20] MEDS: CARVEDILOL 3.125 MG TABLET PO SCH ×2 (09:31→20:38)
[2018-02-20] MEDS: QUETIAPINE 25MG TABLET PO SCH ×2 (09:31→20:38)
[2018-02-20] MEDS: TICAGRELOR 90 MG TABLET PO SCH ×2 (09:31→20:39)
[2018-02-20] MEDS: INSULIN GLARGINE 100 UNITS/ML, PEN SQ-INSULIN SCH ×2 (09:32→20:40)
[2018-02-20 19:35] VITALS: BP 119/71
[2018-02-20] MEDS: metFORMIN XR 500 MG TAB.ER.24H PO SCH (20:39)
[2018-02-20] MEDS: ATORVASTATIN 80 MG TABLET PO SCH (20:39)
[2018-02-21 08:33] VITALS: BP 122/81
[2018-02-21] MEDS: VALPROIC ACID 250 MG CAPSULE PO SCH ×2 (09:14→20:39)
[2018-02-21] MEDS: SERTRALINE 100MG TABLET PO SCH (09:14)
[2018-02-21] MEDS: LISINOPRIL 5 MG TABLET PO SCH (09:14)
[2018-02-21] MEDS: SPIRONOLACTONE 25 MG TABLET PO SCH (09:15)
[2018-02-21] MEDS: CARVEDILOL 3.125 MG TABLET PO SCH ×2 (09:15→20:40)
[2018-02-21] MEDS: QUETIAPINE 25MG TABLET PO SCH ×2 (09:15→20:39)
[2018-02-21] MEDS: TICAGRELOR 90 MG TABLET PO SCH ×2 (09:15→20:39)
[2018-02-21] MEDS: INSULIN GLARGINE 100 UNITS/ML, PEN SQ-INSULIN SCH ×2 (09:16→21:00)
[2018-02-21 19:50] VITALS: BP 113/67
[2018-02-21] MEDS: ATORVASTATIN 80 MG TABLET PO SCH (20:39)
[2018-02-21] MEDS: metFORMIN XR 500 MG TAB.ER.24H PO SCH (20:40)
[2018-02-22 07:47] VITALS: BP 110/68
[2018-02-22] MEDS: VALPROIC ACID 250 MG CAPSULE PO SCH ×2 (08:49→21:05)
[2018-02-22] MEDS: SPIRONOLACTONE 25 MG TABLET PO SCH (08:49)
[2018-02-22] MEDS: SERTRALINE 100MG TABLET PO SCH (08:49)
[2018-02-22] MEDS: LISINOPRIL 5 MG TABLET PO SCH (08:50)
[2018-02-22] MEDS: TICAGRELOR 90 MG TABLET PO SCH ×2 (08:50→21:05)
[2018-02-22] MEDS: CARVEDILOL 3.125 MG TABLET PO SCH ×2 (08:53→21:05)
[2018-02-22] MEDS: QUETIAPINE 25MG TABLET PO SCH ×2 (08:53→21:06)
[2018-02-22] MEDS: INSULIN GLARGINE 100 UNITS/ML, PEN SQ-INSULIN SCH ×2 (09:44→21:07)
[2018-02-22 19:35] VITALS: BP 133/74
[2018-02-22] MEDS: ATORVASTATIN 80 MG TABLET PO SCH (21:05)
[2018-02-22] MEDS: metFORMIN XR 500 MG TAB.ER.24H PO SCH (21:06)
[2018-02-23 07:34] VITALS: BP 109/70
[2018-02-23] MEDS: LISINOPRIL 5 MG TABLET PO SCH (09:47)
[2018-02-23] MEDS: INSULIN GLARGINE 100 UNITS/ML, PEN SQ-INSULIN SCH ×2 (09:47→20:14)
[2018-02-23] MEDS: QUETIAPINE 25MG TABLET PO SCH ×2 (09:48→20:12)
[2018-02-23] MEDS: CARVEDILOL 3.125 MG TABLET PO SCH ×2 (09:48→20:12)
[2018-02-23] MEDS: VALPROIC ACID 250 MG CAPSULE PO SCH ×2 (09:48→20:13)
[2018-02-23] MEDS: SPIRONOLACTONE 25 MG TABLET PO SCH (09:48)
[2018-02-23] MEDS: SERTRALINE 100MG TABLET PO SCH (09:48)
[2018-02-23] MEDS: TICAGRELOR 90 MG TABLET PO SCH ×2 (09:48→20:12)
[2018-02-23 19:30] VITALS: BP 122/69
[2018-02-23] MEDS: ATORVASTATIN 80 MG TABLET PO SCH (20:12)
[2018-02-23] MEDS: metFORMIN XR 500 MG TAB.ER.24H PO SCH (20:13)
[2018-02-24 07:25] VITALS: BP 97/65
[2018-02-24] MEDS: TICAGRELOR 90 MG TABLET PO SCH ×2 (08:59→20:11)
[2018-02-24] MEDS: SPIRONOLACTONE 25 MG TABLET PO SCH (08:59)
[2018-02-24] MEDS: SERTRALINE 100MG TABLET PO SCH (09:00)
[2018-02-24] MEDS: QUETIAPINE 25MG TABLET PO SCH ×2 (09:00→20:10)
[2018-02-24] MEDS: LISINOPRIL 5 MG TABLET PO SCH (09:00)
[2018-02-24] MEDS: CARVEDILOL 3.125 MG TABLET PO SCH ×2 (09:01→20:11)
[2018-02-24] MEDS: VALPROIC ACID 250 MG CAPSULE PO SCH ×2 (09:01→20:11)
[2018-02-24] MEDS: INSULIN GLARGINE 100 UNITS/ML, PEN SQ-INSULIN SCH ×2 (09:15→20:12)
[2018-02-24] MEDS ORDERED: SPIR25TA PO (18:49)
[2018-02-24] MEDS ORDERED: METF500T3 PO (18:49)
[2018-02-24] MEDS ORDERED: QUET25TA PO (18:49)
[2018-02-24] MEDS ORDERED: SERT100T5 PO (18:49)
[2018-02-24] MEDS ORDERED: INSU100I13 SQ-INSULIN ×2 (18:49)
[2018-02-24] MEDS ORDERED: ATOR-2 PO (18:49)
[2018-02-24] MEDS ORDERED: VALP250C PO ×2 (18:49)
[2018-02-24] MEDS ORDERED: CARV3.1212 PO (18:49)
[2018-02-24] MEDS ORDERED: TICA90TA PO (18:49)
[2018-02-24] MEDS ORDERED: LISI5TAB7 PO (18:49)
[2018-02-24 19:31] VITALS: BP 128/76
[2018-02-24] MEDS: ATORVASTATIN 80 MG TABLET PO SCH (20:11)
[2018-02-24] MEDS: metFORMIN XR 500 MG TAB.ER.24H PO SCH (20:11)
[2018-02-25 07:29] VITALS: BP 110/73
[2018-02-25] MEDS: LISINOPRIL 5 MG TABLET PO SCH (09:07)
[2018-02-25] MEDS: SPIRONOLACTONE 25 MG TABLET PO SCH (09:07)
[2018-02-25] MEDS: CARVEDILOL 3.125 MG TABLET PO SCH (09:08)
[2018-02-25] MEDS: VALPROIC ACID 250 MG CAPSULE PO SCH (09:08)
[2018-02-25] MEDS: SERTRALINE 100MG TABLET PO SCH (09:08)
[2018-02-25] MEDS: QUETIAPINE 25MG TABLET PO SCH (09:08)
[2018-02-25] MEDS: TICAGRELOR 90 MG TABLET PO SCH (09:08)
[2018-02-25] MEDS: INSULIN GLARGINE 100 UNITS/ML, PEN SQ-INSULIN SCH (09:11)
== END 2018-02-25 16:00 | disposition home or self-care (01) | DRG 57 ==
LOC: 3E 15:55
PROVIDERS: ADMIT Psychiatry & Neurology Psychosomatic Medicine; ATTEND Psychiatry & Neurology Psychosomatic Medicine
DX: G30.9 Alzheimer's disease, unspecified (principal); E87.1 Hypo-osmolality and hyponatremia; F02.81 Dementia in other diseases classified elsewhere, unspecified severity, with behavioral disturbance; F01.51 Vascular dementia, unspecified severity, with behavioral disturbance; R62.7 Adult failure to thrive; E11.65 Type 2 diabetes mellitus with hyperglycemia; I11.9 Hypertensive heart disease without heart failure; E78.5 Hyperlipidemia, unspecified; I25.10 Atherosclerotic heart disease of native coronary artery without angina pectoris; R41.3 Other amnesia; F32.9 Major depressive disorder, single episode, unspecified; F41.9 Anxiety disorder, unspecified; Z60.2 Problems related to living alone; Z79.4 Long term (current) use of insulin; Z79.899 Other long term (current) drug therapy; Z95.1 Presence of aortocoronary bypass graft; Z90.89 Acquired absence of other organs
CPT/HCPCS: 36415; 71045; 80053; 80061; 81001; 82140; 82607; 82746; 82962; 83036; 84439; 84443; 85025; 85651; 86592; 93005; 92523-GN; G0515-GN; J1815